=== PATIENT | female | born 1985 | race Caucasian/White ===

== ENCOUNTER 2019-03-03 17:28 | Emergency (ER) | payer OTHER ==
[~2019-03-03] VITALS: Ht 157.5 cm; Wt 81.7 kg
[2019-03-03 17:44] VITALS: BP 124/77
[2019-03-03 18:16] LABS: URINE BILIRUBIN NEGATIVE (Negative); URINE BLOOD NEGATIVE (Negative); URINE CLARITY CLEAR; URINE COLOR YELLOW; URINE GLUCOSE-RANDOM* NEGATIVE (Negative); URINE KETONES NEGATIVE (Negative); URINE LEUKOCYTES-REFLEX NEGATIVE (Negative); URINE NITRITE-REFLEX NEGATIVE (Negative); URINE PROTEIN (DIPSTICK) NEGATIVE (Negative); URINE SPECIFIC GRAVITY <= 1.005 (1.005-1.035); URINE UROBILINOGEN 0.2 E.U./dl (0.2-1.0)
[2019-03-03] MEDS ORDERED: KEFLEX500 M1 PO (20:36)
== END 2019-03-03 20:51 | disposition home or self-care (01) ==
LOC: ER 17:28
PROVIDERS: Nurse Practitioner
DX: L73.9 Follicular disorder, unspecified (principal); M79.651 Pain in right thigh